=== PATIENT | female | born 1955 | race Hispanic/Latino ===

== ENCOUNTER 2018-08-20 13:46 | Outpatient (CLI) | payer OTHER | END 2018-08-20 13:47 | disposition home or self-care (01) | LOC: C.USIC 13:46 ==

== ENCOUNTER 2018-09-26 09:38 | Day surgery (SDC) | payer OTHER ==
[2018-09-23 13:59] VITALS: BMI 33.6
[2018-09-26] MEDS ORDERED: Propofol 10 mg/ml Inj (20 ML) ONE (11:46)
[2018-09-26] MEDS ORDERED: Midazolam 2 MG/2 ML VIAL ONE (11:46)
[2018-09-26] MEDS ORDERED: cefOXitin 2 GM in Sodium Chloride 0.9% 100 ML IV ONE (11:50)
[2018-09-26] MEDS ORDERED: ceFAZolin 1 gm in NS 2 GM/200 ML BAG IVPB ONE (11:59)
[2018-09-26] MEDS ORDERED: HYDROmorphone 0.5 mg/0.5 ml ISec IVP PRN (12:34)
[2018-09-26 14:04] VITALS: RESP 18
[2018-09-26 14:23] VITALS: BP 133/74; PULSE 73; TEMP 97.9; O2SAT 100
--- NOTE | 2018-09-27 06:10 | OP ---
PROCEDURE DATE: 09/26/2018 PREOPERATIVE DIAGNOSIS: Postmenopausal bleeding. POSTOPERATIVE DIAGNOSES: Endometrial polyp/myoma and postmenopausal bleeding. PROCEDURES: Hysteroscopy, hysteroscopic polypectomy/myomectomy, dilatation and curettage of the uterus. FINDINGS: A 2 cm posterior submucosal myoma/polyp. The remainder of the endometrial cavity is normal with a normal endocervical canal and normal tubal ostia. TYPE OF ANESTHESIA: General. SURGEON: Sukhdev Swain MD FLUID DEFICIT: 173 ml. COMPLICATIONS: Nil. INDICATIONS: After the risks, benefits, and alternatives of the planned procedures including, but not limited to infection, hemorrhage, deep vein thrombosis, atelectasis, pneumonia, pulmonary embolism, damage to the bladder, damage to the ureter, renal insufficiency, renal failure, wound infection, wound dehiscence, incisional hernia, keloid formation, damage to the large and small intestine, damage to the inferior vena cava and the aorta requiring extensive repair, anesthesia complications, electrolyte imbalance, possibility of , fluid overload, cerebral edema, embolism, uterine perforation, and other complications that were discussed, but are not listed above have been explained to the patient and all her questions were answered, informed consent was obtained. DESCRIPTION OF PROCEDURE: The patient was taken to the operating room in a stable condition. Under a suitable level of general anesthesia, she was prepped and draped in a sterile fashion after having been placed in a dorsal lithotomy position. Bladder was emptied by straight catheterization. Examination under anesthesia revealed a normal-size uterus, anteverted with no adnexal masses. A weighted speculum was inserted into the vagina. The anterior lip of the cervix was grasped using a single-tooth tenaculum. Endocervical curettage was performed and scant tissue was obtained. The uterus was sounded to 7 cm. The cervix was dilated to a #16 Hanks dilator. A hysteroscope was inserted into the uterus. Using a MyoSure device, a 2 cm posterior submucosal polyp/myoma was resected up to the level of the endometrium with good hemostasis. Hysteroscope was then removed and endometrial curettage was performed and the tissue was submitted separately for pathology. At the end of the procedure, instruments were removed from the vagina. There was good hemostasis. The patient was transferred to the recovery room in a stable condition. Pad and instrument counts were correct x2. There were no complications. Sukhdev Swain MD
--- NOTE | 2018-10-02 06:49 | OP ---
PROCEDURE DATE: 09/26/2018 This is a re-dictation of the operative report for Bee Simpson. PREOPERATIVE DIAGNOSIS: Postmenopausal bleeding. POSTOPERATIVE DIAGNOSES: Endometrial polyps/myoma and postmenopausal bleeding. PROCEDURES: Hysteroscopy, hysteroscopic myomectomy/polypectomy, dilation and curettage of the uterus. FINDINGS: The uterus was 7 weeks' size, scant endocervical curettings, 2 cm posterior submucosal polyp/myoma which was resected. The remainder of the endometrial cavity is normal. Normal tubal ostia. ANESTHESIA: General. ESTIMATED BLOOD LOSS: 1 mL. COMPLICATIONS: Nil. DESCRIPTION OF THE PROCEDURE: After the risks, benefits, and alternatives of the planned procedures including, but not limited to infection, hemorrhage, deep vein thrombosis, atelectasis, pneumonia, pulmonary embolism, damage to the bladder, damage to the ureter, renal insufficiency, renal failure, wound infection, wound dehiscence, incisional hernia, keloid formation, damage to large and small intestines, damage to inferior vena cava and aorta requiring extensive repair, anesthesia complications, electrolyte imbalance, possibility of , fluid overload, cerebral edema, air embolism, uterine perforation, and other complications that were discussed, but are not listed above have been explained to the patient and all her questions were answered, informed consent was obtained. The patient was taken to the operating room in a stable condition. Under a suitable level of general anesthesia, she was prepped and draped in a sterile fashion after having been placed in a dorsal lithotomy position. Bladder was emptied by straight catheterization. Examination under anesthesia revealed a normal-size uterus, anteverted with no adnexal masses. A weighted speculum was inserted into the vagina. The anterior lip of the cervix was grasped using a single-tooth tenaculum. An endocervical curettage was performed and scant tissue was obtained. The uterus was sounded to 7 cm. The cervix was dilated to a #16 Hanks dilator. The hysteroscope was inserted into the uterus. Using a MyoSure device, a 2 cm posterior submucosal myoma was resected up to the level of the endometrium. The hysteroscope was then removed and endometrial curettage was performed. Scant tissue was obtained and submitted separately for pathology. At the end of the procedure, instruments were removed from the vagina. The patient was then transferred to the recovery room in a stable condition. Pad and instrument counts were correct x2. There were no complications. Sukhdev Swain MD
== END 2018-09-26 14:34 | disposition home or self-care (01) ==
LOC: C.SDS 09:38
PROVIDERS: ATTEND Obstetrics & Gynecology Reproductive Endocrinology
DX: D25.9 Leiomyoma of uterus, unspecified (principal); N95.0 Postmenopausal bleeding; C54.1 Malignant neoplasm of endometrium; N84.0 Polyp of corpus uteri
CPT/HCPCS: 36415; 58558; 86850; 86900; 88305; C2615; J0690; J1170; J2001; J2250; J2405; J2704; J3010

== ENCOUNTER 2018-10-03 13:45 | Outpatient (CLI) | payer OTHER | END 2018-10-03 13:46 | disposition home or self-care (01) | LOC: C.CTH 13:46 | DX: C54.1 Malignant neoplasm of endometrium (principal) ==

== ENCOUNTER 2018-10-11 15:18 | Outpatient (CLI) | payer OTHER | END 2018-10-11 15:19 | disposition home or self-care (01) | LOC: C.MAMMO 15:18 | DX: Z12.31 Encounter for screening mammogram for malignant neoplasm of breast (principal) ==

== ENCOUNTER 2018-10-28 10:23 | Outpatient (CLI) | payer OTHER | END 2018-10-28 10:24 | disposition home or self-care (01) | LOC: C.LAB 10:23 | DX: Z01.810 Encounter for preprocedural cardiovascular examination (principal) ==

== ENCOUNTER 2018-11-08 18:59 | Emergency (ER) | payer OTHER ==
[2018-11-08 19:05] VITALS: BMI 34.1
[2018-11-08 19:15] VITALS: RESP 20; O2SAT 95
[2018-11-08 19:39] LABS: BASO # 0.1 K/uL (0.0-0.2); BASO % 0.9 % (0.0-2.0); EOS # 0.1 K/uL (0.0-0.7); EOS % 1.7 % (0.0-4.0); HEMOGLOBIN 13.7 g/dL (11.0-16.0); LYMPH # 1.8 K/uL (1.0-4.3); LYMPH % 23.2 % (20.0-40.0); MEAN CELL VOLUME 83.2 fL (81.0-99.0); MEAN CORPUSCULAR HEMOGLOBIN 27.7 pg (27.0-31.0); MEAN CORPUSCULAR HGB CONC 33.3 g/dL (33.0-37.0); MEAN PLATELET VOLUME 9.7 fL (7.2-11.7); MONO # 0.9 K/uL (0.0-0.8); MONO % 11.1 % (0.0-10.0); NEUT # 4.9 K/uL (1.8-7.0); NEUT % 63.1 % (50.0-75.0); NRBC % 0.1 % (0.0-2.0); RBC 4.94 Mil/uL (3.80-5.20); RED CELL DISTRIBUTION WIDTH 14.3 % (11.5-14.5); WHITE BLOOD COUNT 7.8 K/uL (4.8-10.8)
[2018-11-08 19:49] LABS: INR 1.1; PARTIAL THROMBOPLASTIN TIME 27.5 SECONDS (21-34); PROTHROMBIN TIME 12.2 SECONDS (9.7-12.2)
--- NOTE | 2018-11-08 19:49 | C.PDOC ---
History Of Present Illness 63 year old female with PMHx of endometrial CA presents to the ED c/o substernal pain that started yesterday. Patient reports her pain feels like squeezing and burning pain that is non radiating and worsens after PO intake. Patient is s/p hysterectomy [address] [facility] for endometrial CA. Patient reports she has been using her incentive spirometer, and she is also using Lovenox post op. Patient denies cough, fever, chills, headache, SOB, palpitations, nausea, vomiting, dizziness, rashes. Time Seen by Provider: 11/08/18 19:18 Chief Complaint (Nursing): Chest Pain History Per: Patient History/Exam Limitations: no limitations Onset/Duration Of Symptoms: Days (1) Current Symptoms Are (Timing): Still Present Severity: Moderate Quality: Burning, Squeezing Exacerbating Factors: Other (with po intake) Recent travel outside of the [place]: No Additional History Per: Patient Past Medical History Reviewed: Historical Data, Nursing Documentation, Vital Signs Vital Signs: Last Vital Signs Temp 98.4 F 11/08/18 19:08 Pulse 87 11/08/18 19:08 Resp 20 11/08/18 19:08 BP 152/88 H 11/08/18 19:08 Pulse Ox 95 11/08/18 19:08 Primary Care Provider: Ajit Koehler - Medical History PMH: HTN Surgical History: No Surg Hx Family History: States: No Known Family Hx - Social History Hx Alcohol Use: No Hx Substance Use: No Review Of Systems Constitutional: Negative for: Fever, Chills Eyes: Negative for: Vision Change Cardiovascular: Positive for: Chest Pain. Negative for: Palpitations Respiratory: Negative for: Cough, Shortness of Breath Gastrointestinal: Negative for: Nausea, Vomiting, Abdominal Pain Skin: Negative for: Rash Neurological: Negative for: Weakness, Numbness, Headache, Dizziness Physical Exam - Physical Exam Appears: Well, Non-toxic, No Acute Distress, Other (obese) Skin: Normal Color, Warm, Dry, No Rash Head: Atraumatic, Normacephalic Eye(s): bilateral: Normal Inspection Oral Mucosa: Moist Neck: Supple Chest: Symmetrical, No Tenderness Cardiovascular: Rhythm Regular Respiratory: Normal Breath Sounds, No Rales, No Rhonchi, No Wheezing Gastrointestinal/Abdominal: Normal Exam, Bowel Sounds, Soft, No Tenderness Extremity: Normal ROM, Pedal Edema (chronic bilateral pitting 2+ ), No Calf Tenderness, Capillary Refill (< 2 seconds) Pulses: Left Dorsalis Pedis: Normal, Right Dorsalis Pedis: Normal Neurological/Psych: Oriented x3, Normal Speech, Normal Cognition Gait: Steady ED Course And Treatment - Laboratory Results Result Diagrams: 11/08/18 19:34 11/08/18 19:34 ECG: Interpreted By Me, Viewed By Me (NST 73 bpm, left axis deviation, no acute ST/T wave changes) ECG Interpretation: No Acute Changes O2 Sat by Pulse Oximetry: 95 (ON RA) Pulse Ox Interpretation: Normal - CT Scan/US CTA chest Other Rad Studies (CT/US): Read By Radiologist, Radiology Report Reviewed CT/US Interpretation: EXAM: CTA Chest with Intravenous Contrast for Pulmonary Embolism. CLINICAL HISTORY: Chest pain ro PE endometrial ca hystroectomy few days ago. TECHNIQUE: Axial CTA images of the chest with intravenous contrast using a pulmonary embolism protocol. Reconstructed images were created and reviewed. 0.00 mGy-cm. CONTRAST: With; 100MLS VISI 320 was administered without incident. COMPARISON: None provided. FINDINGS: PULMONARY ARTERIES. No evidence of central or segmental pulmonary embolism is seen. AORTA. There is no evidence for aneurysm or dissection of the thoracic aorta. LUNGS. The lungs appear clear. PLEURAL SPACES. No pleural effusion seen. No pneumothorax evident. HEART. Normal heart size. No pericardial effusion. LYMPH NODES. No lymphadenopathy is evident. BONES. No focal osseous abnormality or acute fracture. SOFT TISSUES. Dissecting subcutaneous emphysema is seen in the lateral right abdominal wall extending cephalad about the right lateral thorax. Several bubbles of free intraperitoneal air. This may be from recent hysterectomy performed a few days ago. UPPER ABDOMEN. Images of the upper abdomen demonstrate a 1.3 cm cholelith within the gallbladder. There is hepatomegaly also noted. The liver measured 18.1 cm in the midclavicular line. IMPRESSION: 1. No identification of PE. 2. Subcutaneous emphysema seen along the right lateral abdominal wall and thoracic cage. Several bubbles of free intraperitoneal air. This is consistent with recent hysterectomy. 3. 1.3 cm solitary cholelith. 4. Hepatomegaly. . Electronically signed on November 08, 2018 10:43:54 PM EDT by: Ajit Sullivan M.D., M.B.A., Certified By ABR. Fellowship Trained MRI and CT Specialist. Progress Note: Blood work, EKG, CXR, CTA chest ordered and reviewed. Patient given IV pepcid. Reevaluation Time: 00:30 Reassessment Condition: Improved (Patient reassessed, is resting comfortably and states her symptoms improved after IV pepcid. Suspect GI etiology. CTA chest neg for acute PE, and GAIL neg x 2. Patient given Rx for pepcid and was instructed to follow up with PMD in 1-2 zavala. She understands she should return to [facility] if symptoms worsen.) Disposition Counseled Patient/Family Regarding: Studies Performed, Diagnosis, Need For Followup, Rx Given - Disposition Referrals: Ajit Koehler MD [Staff Provider] - Disposition: HOME/ ROUTINE Disposition Time: 00:30 Condition: STABLE Additional Instructions: FOLLOW UP WITH YOUR DOCTOR IN 1-2 DAYS, AND WITH YOUR SURGEON SCHEDULED RETURN TO ER IMMEDIATELY IF SYMPTOMS WORSEN USE MEDICATIONS DIRECTED - PROTONIX DAILY AND PEPCID NEEDED Prescriptions: Famotidine [Pepcid] 20 mg PO BID PRN #15 tab PRN Reason: abdominal Instructions: Chest Pain That Is Not Caused by the Heart (DC) Forms: [employer] (Vincentian) Print Language: GREEK - Clinical Impression Clinical Impression: Esophageal spasm, Chest pain, non-cardiac - Scribe Statement The provider has reviewed the documentation as recorded by the Scribe Horacio Fontaine All medical record entries made by the Scribe were at my direction and personally dictated by me. I have reviewed the chart and agree that the record accurately reflects my personal performance of the history, physical exam, medical decision making, and the department course for this patient. I have also personally directed, reviewed, and agree with the discharge instructions and disposition.
[2018-11-08 20:00] LABS: ALB/GLOB RATIO 1.1 (1.0-2.1); ALBUMIN 4.1 g/dL (3.5-5.0); ALT/SGPT 26 U/L (9-52); AST/SGOT 38 U/L (14-36); BLOOD UREA NITROGEN 16 mg/dL (7-17); CALCIUM 9.5 mg/dl (8.6-10.4); GFR NON-AFRICAN AMERICAN > 60
[2018-11-08] MEDS ORDERED: Iodixanol 320 MG/ML 100 ML BOTTLE IV ONE (20:16)
[2018-11-09 00:20] LABS: CK-MB 0.35 ng/mL (0.0-3.38)
[2018-11-09 00:40] VITALS: BP 122/60; PULSE 67; TEMP 97.9
[2018-11-09 00:46] LABS: CK-MB 1.87 ng/mL (0.0-3.38)
--- NOTE | 2018-11-09 11:53 | CT ---
Date of service: 11/08/2018 PROCEDURE: CT Chest with contrast (Pulmonary Angiogram) HISTORY: CHEST PAIN, ENDOMETRIAL CA, R/O PE COMPARISON: Comparison made with prior CT scan chest abdomen pelvis 10/03/2018. With cemented no TECHNIQUE: Axial computed tomography images were obtained of the chest in the pulmonary arterial phase of enhancement. Coronal and sagittal reformatted images were created and reviewed. Intravenous contrast dose: 100 cc Visipaque 320 contrast material. Radiation dose: Total exam DLP = 631.49 mGy-cm. This CT exam was performed using one or more of the following dose reduction techniques: Automated exposure control, adjustment of the mA and/or kV according to patient size, and/or use of iterative reconstruction technique. FINDINGS: Note the examination is limited due to suboptimal opacification of the pulmonary arteries as well as large body habitus. This study is further limited by streak and beam hardening artifact arising from the upper extremities which have not been moved from the field of view. PULMONARY ARTERIES: There is a small somewhat elliptical shaped lucency within the contrast column in a proximal right lower lobe pulmonary artery segment that could represent a nonocclusive small pulmonary embolus. This is best seen on axial series 2 image number 101 through 105.. Pulmonary trunk measures approximately 3.8 cm. AORTA: No acute findings. No thoracic aortic aneurysm. Ascending thoracic aorta is mildly dilated measuring nearly 3.9 cm. Descending thoracic aorta measures approximately 2.46 cm. Aortic atherosclerotic calcification or mural plaque present. LUNGS: There are vague patchy ground-glass opacity seen in the upper and lower lobes bilaterally possibly due to some mild air trapping PLEURAL SPACES: Unremarkable. No effusion or pneumothorax. HEART: Unremarkable. No cardiomegaly. No significant pericardial effusion. LYMPH NODES: No lymphadenopathy. Trachea midline and patent with no large central endoluminal lesions. Small hiatal hernia. BONES, CHEST WALL: Subcutaneous emphysema right lateral chest wall and right lateral upper/mid abdomen possibly due to recent hysterectomy as per technologist notation the OTHER FINDINGS: Note made of small of several bubbles of intraperitoneal air likely related to recent hysterectomy. Liver is borderline enlarged though incompletely visualized. Cholelithiasis. IMPRESSION: Limited study as described above. There is a small focus of low attenuation within the contrast column right lower lobe pulmonary branch could represent a nonocclusive pulmonary embolus.. The ascending thoracic aorta is mildly dilated.. Small amount of intraperitoneal air and subcutaneous air within the right lateral chest wall and subcutaneous tissues lateral upper abdomen most likely representing sequela of recent hysterectomy. Hysterectomy sequela Borderline/mild hepatomegaly felt to be present Cholelithiasis. Note these findings were discussed with emergency room AKIL Hammond at approximately 11:45 a.m. with written down and read back verification.
--- NOTE | 2018-11-09 14:56 | RAD ---
Date of service: 11/08/2018 HISTORY: CP COMPARISON: Comparison chest 09/26/2018 TECHNIQUE: 1 view obtained. FINDINGS: LUNGS: No acute consolidation PLEURA: No significant pleural effusion identified, no pneumothorax apparent. CARDIOVASCULAR: No aortic atherosclerotic calcification present. Heart appears mildly enlarged. No pulmonary vascular congestion. OSSEOUS STRUCTURES: No significant abnormalities. VISUALIZED UPPER ABDOMEN: Normal. OTHER FINDINGS: None. IMPRESSION: No acute consolidation. Mild cardiomegaly
--- NOTE | 2018-11-11 13:29 | CARD ---
APPROVED REPORT Date of service: 11/08/2018 EKG Measurement Heart [id number] <Conclusion> Normal sinus rhythm with sinus arrhythmia Minimal voltage criteria for LVH, may be normal variant Borderline ECG
== END 2018-11-09 00:41 | disposition home or self-care (01) ==
LOC: C.ER 18:59
DX: R07.89 Other chest pain (principal); K22.4 Dyskinesia of esophagus
CPT/HCPCS: 71045; 71275; 80053; 82550; 82553; 84484; 85025; 85610; 85730; 93005; 96374; 99285; Q9967

== ENCOUNTER 2018-11-11 20:10 | Observation (INO) | payer OTHER ==
[2018-11-11 20:10] VITALS: BMI 34.1
--- NOTE | 2018-11-11 20:34 | C.PDOC ---
History Of Present Illness The patient presents to the ED for evaluation of an occipital headache which began earlier today. Patient states she was recently started on Eliquis three days ago for a possible PE. Patient denies fever, chills, nausea, vomiting, or any neurological deficits at this time. Time Seen by Provider: 11/11/18 20:34 Chief Complaint (Nursing): High Blood Pressure History Per: Patient History/Exam Limitations: no limitations Onset/Duration Of Symptoms: Hrs Current Symptoms Are (Timing): Still Present Associated Symptoms: Headache Quality Of Symptoms: Other (none) Severity: Mild Pain Scale Rating Of: 2 Exacerbating Factor(s): Pos: Recent Change In Medication Recent travel outside of the [place]: No Additional History Per: Patient Past Medical History Reviewed: Historical Data, Nursing Documentation, Vital Signs Vital Signs: Last Vital Signs Temp 98.5 F 11/11/18 20:27 Pulse 74 11/11/18 20:27 Resp 18 11/11/18 20:27 BP 175/55 H 11/11/18 20:27 Pulse Ox 99 11/11/18 20:27 Primary Care Provider: Ajit Koehler - Medical History PMH: HTN, Pulmonary Embolism Denies: Chronic Kidney Disease Surgical History: No Surg Hx Family History: States: Unknown Family Hx - Social History Hx Alcohol Use: No Hx Substance Use: No Review Of Systems Constitutional: Negative for: Fever, Chills Eyes: Negative for: Vision Change Cardiovascular: Negative for: Chest Pain, Palpitations Respiratory: Negative for: Cough, Shortness of Breath, SOB with Excertion Gastrointestinal: Negative for: Nausea, Vomiting, Abdominal Pain Skin: Negative for: Rash, Lesions, Jaundice, Bruising Neurological: Positive for: Headache (occipital). Negative for: Weakness, Numbness, Change in Speech, Confusion, Altered Mental Status, Dizziness Psych: Negative for: Anxiety, Depression Physical Exam - Physical Exam Appears: Non-toxic, No Acute Distress Skin: Warm, Dry Head: Atraumatic, Normacephalic, No Tenderness Eye(s): bilateral: Normal Inspection Ear(s): Bilateral: Normal Nose: No Discharge Oral Mucosa: Moist Throat: No Erythema, No Exudate Neck: Supple Chest: Symmetrical, No Deformity, No Tenderness Cardiovascular: Rhythm Regular, No Murmur Respiratory: No Rales, No Rhonchi, No Wheezing Gastrointestinal/Abdominal: Soft, No Tenderness, No Guarding, No Rebound, Other (morbidly obese , umbilical incision clean and dry) Extremity: Normal ROM, Capillary Refill (less than 2 seconds ), Other (chronic pitting edema to bilateral lower extremities ) Pulses: Left Dorsalis Pedis: Normal, Right Dorsalis Pedis: Normal Neurological/Psych: Oriented x3 ED Course And Treatment - Laboratory Results Result Diagrams: 11/11/18 21:51 11/11/18 21:51 O2 Sat by Pulse Oximetry: 99 (on RA ) Pulse Ox Interpretation: Normal - CT Scan/US CT head Other Rad Studies (CT/US): Read By Radiologist, Radiology Report Reviewed CT/US Interpretation: EXAM: CT Head Without IV contrast. CLINICAL HISTORY: Headache. TECHNIQUE: Axial computed tomography images of the head/brain without intravenous contrast. COMPARISON: None provided. FINDINGS: BRAIN: No acute intraparenchymal hemorrhage. No mass lesion. No CT evidence for acute territorial infarct. No midline shift or extra-axial collections. VENTRICLES: No hydrocephalus. ORBITS: The orbits are unremarkable. SINUSES AND MASTOIDS: The paranasal sinuses and mastoid air cells are clear. BONES: No fracture. SOFT TISSUES: Unremarkable. IMPRESSION: No acute intracranial abnormality. . Electronically signed on November 11, 2018 9:07:12 PM EDT by: Ajit Sullivan M.D., M.B.A., Certified By ABR. Fellowship Trained MRI and CT Specialist. Progress Note: Bloodwork, urinalysis, CT Head, and EKG ordered. Disposition Discussed With : Stacy Phelps Comment: accepted the pt on his service and took over the care at 12:10 AM Doctor Will See Patient In The: Hospital Counseled Patient/Family Regarding: Studies Performed, Diagnosis - Disposition Disposition: HOSPITALIZED Disposition Time: 20:34 Condition: FAIR Forms: [facility] (Urdu) - POA Present On Arrival: None - Clinical Impression Clinical Impression: Hypertension, Dizziness - Scribe Statement The provider has reviewed the documentation as recorded by the Scribe (Katrin Phelps) Provider Attestation: All medical record entries made by the Scribe were at my direction and personally dictated by me. I have reviewed the chart and agree that the record accurately reflects my personal performance of the history, physical exam, medical decision making, and the department course for this patient. I have also personally directed, reviewed, and agree with the discharge instructions and disposition. Decision To Admit - Pt Status Changed To: Hospital Disposition Of: Observation - . Bed Request Type: Telemetry Admitting Physician: Stacy Phelps Patient Diagnosis: Hypertension, Dizziness
[2018-11-11 21:57] LABS: BASO % 0.3 % (0.0-2.0); EOS # 0.1 K/uL (0.0-0.7); EOS % 1.5 % (0.0-4.0); HEMOGLOBIN 14.1 g/dL (11.0-16.0); LYMPH # 1.5 K/uL (1.0-4.3); LYMPH % 18.2 % (20.0-40.0); MEAN CELL VOLUME 85.1 fL (81.0-99.0); MEAN CORPUSCULAR HEMOGLOBIN 28.3 pg (27.0-31.0); MEAN CORPUSCULAR HGB CONC 33.3 g/dL (33.0-37.0); MEAN PLATELET VOLUME 10.3 fL (7.2-11.7); MONO # 0.9 K/uL (0.0-0.8); NEUT # 5.8 K/uL (1.8-7.0); RBC 4.97 Mil/uL (3.80-5.20); RED CELL DISTRIBUTION WIDTH 14.2 % (11.5-14.5); WHITE BLOOD COUNT 8.4 K/uL (4.8-10.8)
[2018-11-11 22:28] LABS: ALB/GLOB RATIO 1.1 (1.0-2.1); ALBUMIN 4.1 g/dL (3.5-5.0); ALT/SGPT 37 U/L (9-52); AST/SGOT 32 U/L (14-36); BLOOD UREA NITROGEN 20 mg/dL (7-17); CALCIUM 9.4 mg/dl (8.6-10.4); GFR NON-AFRICAN AMERICAN > 60
[2018-11-11 22:55] LABS: SQUAMOUS EPITHIAL 28 /hpf (0-5); URINE BILIRUBIN NEGATIVE (NEGATIVE); URINE BLOOD NEGATIVE (NEGATIVE); URINE CLARITY Hazy (Clear); URINE COLOR Yellow (YELLOW); URINE GLUCOSE (UA) NORMAL (Normal); URINE LEUKOCYTE ESTERASE NEG Leu/uL (Negative); URINE PROTEIN NEGATIVE (NEGATIVE); URINE UROBILINOGEN NORMAL mg/dL (0.2-1.0)
[2018-11-11 23:01] LABS: URINE BACTERIA RARE (<OCC)
[2018-11-12 01:13] LABS: CK-MB 0.57 ng/mL (0.0-3.38)
[2018-11-12 02:07] VITALS: PULSE 71; RESP 20
--- NOTE | 2018-11-12 07:47 | CT ---
Date of service: 11/11/2018 PROCEDURE: CT HEAD WITHOUT CONTRAST. HISTORY: Headache COMPARISON: None available. TECHNIQUE: Axial computed tomography images were obtained through the head/brain without intravenous contrast. Radiation dose: Total exam DLP = 1153.41 mGy-cm. This CT exam was performed using one or more of the following dose reduction techniques: Automated exposure control, adjustment of the mA and/or kV according to patient size, and/or use of iterative reconstruction technique. FINDINGS: HEMORRHAGE: No intracranial hemorrhage. BRAIN: No mass effect or edema. Scattered focal lucencies in the subcortical and periventricular white matter suggestive for chronic microvascular ischemic change. Diffuse generalized parenchymal atrophy. Small lacunar infarct within the left external capsule/insular region. Punctate bilateral basal ganglia calcifications. Punctate calcification within the inferior left cerebellum. VENTRICLES: Unremarkable. No hydrocephalus. CALVARIUM: Unremarkable. PARANASAL SINUSES: Suggestion of a small partially calcified osteoma in the posterior lateral aspect of the left sphenoid sinus. Mild mucosal thickening of the ethmoid air cells. MASTOID AIR CELLS: Unremarkable as visualized. No inflammatory changes. OTHER FINDINGS: None. IMPRESSION: No acute intracranial abnormality. Chronic microvascular ischemic change. Diffuse generalized parenchymal atrophy. Additional findings as above. If symptoms persists, consider correlation with MRI. A preliminary report was generated at 9:07 p.m. on 11/11/[address] Ajit Sullivan from [employer].
[2018-11-12 08:20] LABS: CK-MB 0.41 ng/mL (0.0-3.38)
[2018-11-12 08:47] VITALS: BP 109/66; TEMP 97.8; O2SAT 96
[2018-11-12] MEDS ORDERED: Enoxaparin 40 mg Syringe SC SCH (10:00)
[2018-11-12] MEDS ORDERED: Metoprolol Succinate 25 mg XL Tab PO ONE (12:30)
[2018-11-12] MEDS ORDERED: Metoprolol Succinate 50 mg XL Tab PO SCH (13:30)
[2018-11-12] MEDS ORDERED: Metoprolol Succinate 25 mg XL Tab PO SCH ×2 (18:00)
--- NOTE | 2018-11-12 21:18 | CP.PCM.CON ---
History of Present Illness - History of Present Illness History of Present Illness: 63 years old female complaining of headache and dizziness for one day. She was found to have an elevated BP. Known to have a hypertension, an obesity, she underwent a robot-assisted laparoscospic hysterectomy for an endometrial cancer on 11/05/2018. Subsequently, she developed chest pain, and a CTA of the chest revealed a questionable clot at the right lower lobe. She was started on Eliquis 5 mg PO BID. She also took HCTX 12.5 mg PO qd and Metoprolol succinate 25 mg PO BID. In the ED at [facility] last night, a CT scan of the head was normal. She has no more dizziness, but stil has a headache with normal BP. Review of Systems - Neurological Neurological: Dizziness, Headaches Past Patient History - Infectious Disease Hx of Infectious Diseases: None - Past Medical History & Family History Past Medical History?: Yes - Past Social History Smoking Status: Never Smoked Alcohol: None Drugs: Denies Home Situation {Lives}: With Family Domestic Violence: Negative - CARDIAC Hx Hypertension: Yes - PULMONARY Hx Pulmonary Embolism: Yes - NEUROLOGICAL Hx Neurological Disorder: No - HEENT Hx HEENT Problems: No - RENAL Hx Chronic Kidney Disease: No - ENDOCRINE/METABOLIC Hx Endocrine Disorders: No - HEMATOLOGICAL/ONCOLOGICAL Hx Blood Disorders: No - INTEGUMENTARY Hx Dermatological Problems: No - MUSCULOSKELETAL/RHEUMATOLOGICAL Hx Musculoskeletal Disorders: No - GASTROINTESTINAL Hx Gastrointestinal Disorders: No - GENITOURINARY/GYNECOLOGICAL Hx Genitourinary Disorders: Yes Hx Postmenopausal Bleeding: Yes Other/Comment: Hx. of Endometrial Cancer - PSYCHIATRIC Hx Anxiety: Yes Hx Substance Use: No - SURGICAL HISTORY Hx Surgeries: Yes Hx Section: Yes () Hx Hysterectomy: Yes (November 05, 2018) Other/Comment: Hysterectomy done due to hx of Endometrial Cancer - ANESTHESIA Hx Anesthesia: Yes (( X2)) Hx Anesthesia Reactions: No Hx Malignant Hyperthermia: No Meds Allergies/Adverse Reactions: Allergies Allergy/AdvReac Type Severity Reaction Status Date / Time No Known Allergies Allergy Verified 11/11/18 20:31 Physical Exam - Constitutional Appears: Well, Non-toxic, No Acute Distress - Head Exam Head Exam: NORMAL INSPECTION - Eye Exam Eye Exam: Normal appearance Pupil Exam: NORMAL ACCOMODATION - ENT Exam ENT Exam: Normal Exam - Neck Exam Neck exam: Positive for: Normal Inspection - Respiratory Exam Respiratory Exam: Clear to Auscultation Bilateral, NORMAL BREATHING PATTERN - Cardiovascular Exam Cardiovascular Exam: REGULAR RHYTHM - GI/Abdominal Exam GI & Abdominal Exam: Normal Bowel Sounds, Soft - Rectal Exam Rectal Exam: Deferred - Exam Exam: NORMAL INSPECTION - Extremities Exam Extremities exam: Positive for: normal inspection - Back Exam Back exam: NORMAL INSPECTION - Neurological Exam Neurological exam: Alert, Normal Gait, Oriented x3 - Psychiatric Exam Psychiatric exam: Anxious - Skin Skin Exam: Dry, Intact, Warm Results - Vital Signs Recent Vital Signs: Last Vital Signs Temp 97.8 F 11/12/18 07:00 Pulse 71 11/12/18 07:00 Resp 20 11/12/18 07:00 BP 109/66 11/12/18 07:00 Pulse Ox 96 11/12/18 07:00 - Labs Result Diagrams: 11/11/18 21:51 11/11/18 21:51 Labs: Laboratory Results - last 24 hr 11/11/18 11/11/18 11/11/18 21:51 21:51 22:26 WBC 8.4 RBC 4.97 Hgb 14.1 Hct 42.3 MCV 85.1 MCH 28.3 MCHC 33.3 RDW 14.2 Plt Count 219 MPV 10.3 Neut % (Auto) 69.0 Lymph % (Auto) 18.2 L [place] % (Auto) 11.0 H Eos % (Auto) 1.5 Baso % (Auto) 0.3 Neut # (Auto) 5.8 Lymph # (Auto) 1.5 [place] # (Auto) 0.9 H Eos # (Auto) 0.1 Baso # (Auto) 0.0 Sodium 138 Potassium 4.0 Chloride 97 L Carbon Dioxide 34 H Anion Gap 11 BUN 20 H Creatinine 0.5 L Est GFR ( Amer) > 60 Est GFR (Non-Af Amer) > 60 Random Glucose 96 Calcium 9.4 Total Bilirubin 0.6 AST 32 ALT 37 Alkaline Phosphatase 68 Total Creatine Kinase CK-MB (Mass) Troponin I Total Protein 7.8 Albumin 4.1 Globulin 3.7 Albumin/Globulin Ratio 1.1 Urine Color Yellow Urine Clarity Hazy Urine pH 6.0 Ur Specific [place] 1.013 Urine Protein Negative Urine Glucose (UA) Normal Urine Ketones Negative Urine Blood Negative Urine Nitrate Negative Urine Bilirubin Negative Urine Urobilinogen Normal Ur Leukocyte Esterase Neg Urine WBC (Auto) 1 Urine RBC (Auto) 1 Ur Squamous Epith Cells 28 H Urine Bacteria Rare 11/12/18 11/12/18 11/12/18 00:44 07:46 14:00 WBC RBC Hgb Hct MCV MCH MCHC RDW Plt Count MPV Neut % (Auto) Lymph % (Auto) [place] % (Auto) Eos % (Auto) Baso % (Auto) Neut # (Auto) Lymph # (Auto) [place] # (Auto) Eos # (Auto) Baso # (Auto) Sodium Potassium Chloride Carbon Dioxide Anion Gap BUN Creatinine Est GFR ( Amer) Est GFR (Non-Af Amer) Random Glucose Calcium Total Bilirubin AST ALT Alkaline Phosphatase Total Creatine Kinase 61 61 61 CK-MB (Mass) 0.57 0.41 0.40 Troponin I < 0.0120 < 0.0120 < 0.0120 Total Protein Albumin Globulin Albumin/Globulin Ratio Urine Color Urine Clarity Urine pH Ur Specific [place] Urine Protein Urine Glucose (UA) Urine Ketones Urine Blood Urine Nitrate Urine Bilirubin Urine Urobilinogen Ur Leukocyte Esterase Urine WBC (Auto) Urine RBC (Auto) Ur Squamous Epith Cells Urine Bacteria Assessment & Plan (1) Headache Assessment and Plan: Head CT scan normal. Try Tylenol. Status: Acute (2) Hypertension Assessment and Plan: To continue HCTZ and Metoprolol succinate . Status: Acute (3) History of endometrial cancer Status: Acute (4) History of endometrial cancer Status: Acute
--- NOTE | 2018-11-13 06:59 | CON ---
DATE: 11/12/2018 HISTORY OF PRESENT ILLNESS: This is a 63-year-old female with past medical history of hypertension, , chronic kidney disease, recently had a surgery, abdominal laparoscopy and was feeling pain in the back of the head and noted to have a blood pressure of 107/55. Headache is better and also . The patient was also recently started on Eliquis for possible PE. Discussed with the patient care provider, Dr. Koehler. The patient is sitting comfortable. Her is at bedside. Feeling better. PAST MEDICAL HISTORY: As above. SOCIAL HISTORY: Does not smoke and does not drink. PHYSICAL EXAMINATION: VITAL SIGNS: Blood pressure 107/55. HEENT: Normocephalic, atraumatic. NECK: Supple. NEUROLOGIC: Awake, oriented . Cranial nerves II through XII are tested. Pupils reactive. EOMs intact. Visual aguilar are full. No facial asymmetry. Tongue is midline. Motor examination: Moves all the extremities . Deep tendon reflexes 1+. Both plantars are downgoing. Sensory appears intact. Cerebellar and gait, normal. LABORATORY DATA: WBC 8.4, hemoglobin 14.1, hematocrit 42.6, platelets 219. Sodium 138, potassium , chloride 97, CO2 of 34, glucose 96, BUN 20, creatinine . IMPRESSION AND PLAN: Occipital headache. The patient is on Eliquis. CAT scan of the head was negative. Continue present management. Headache is under control. Blood pressure is under control. We will follow up. Roger Cooper MD
--- NOTE | 2018-11-13 11:55 | CARD ---
APPROVED REPORT Date of service: 11/12/2018 EKG Measurement Heart [id number] <Conclusion> Normal sinus rhythm Left ventricular hypertrophy with repolarization abnormality Anterior infarct, age undetermined Abnormal ECG
== END 2018-11-12 14:38 | disposition home or self-care (01) ==
LOC: C.ER 20:10 → C.9E 11-12 00:23 → C.6T 11-12 01:06
PROVIDERS: ADMIT Internal Medicine Nephrology; ATTEND Internal Medicine Nephrology
DX: G44.89 Other headache syndrome (principal); N18.9 Chronic kidney disease, unspecified; I12.9 Hypertensive chronic kidney disease with stage 1 through stage 4 chronic kidney disease, or unspecified chronic kidney disease; Z98.890 Other specified postprocedural states; Z79.01 Long term (current) use of anticoagulants; E66.9 Obesity, unspecified; Z85.42 Personal history of malignant neoplasm of other parts of uterus; F41.9 Anxiety disorder, unspecified
CPT/HCPCS: 36415; 70450; 80053; 81001; 84484; 85025; G0378

== ENCOUNTER 2018-11-22 10:53 | Outpatient (CLI) | payer OTHER | END 2018-11-22 10:54 | disposition home or self-care (01) | LOC: C.VASC 10:53 ==